=== PATIENT | female | born 2000 | race African-American/Black ===

== ENCOUNTER 2020-12-26 10:13 | Emergency (ER) | payer OTHER, SELFPAY ==
[2020-12-26 11:05] VITALS: BP 129/81; PULSE 95; RESP 18; TEMP 36.4; O2SAT 100; BMI 28.3
--- NOTE | 2020-12-26 11:28 | ED_ITS ---
HPI - Headache General Chief Complaint: Headache Stated Complaint: facial pain on right side of face x3 days Time Seen by Provider: 12/26/20 11:18 Source: patient Mode of arrival: Family Vehicle Limitations: no limitations History of Present Illness HPI Narrative: Patient is a 20-year-old female. Has a diagnosis of trigeminal neuralgia. She does see a neurologist for this. Is on multiple medications for. Approximately 3 days ago she started having increasing pain on the right side of her face and also pain in her right ear. No fever. She has been taking her medications as directed. They were not helping so she came to the emergency department for further evaluation Related Data Previous Rx's Medication Instructions Recorded hydrocodone 5 mg-acetaminophen 325 1 tab PO Q4-6H PRN #10 tab 12/26/20 mg tablet Allergies Allergy/AdvReac Type Severity Reaction Status Date / Time No Known Drug Allergies Allergy Verified 12/26/20 11:10 Review of Systems Constitutional Comments: No fevers, no headache, does have right-sided facial Eyes Comments: No vision changes ENT Comments: Pain in the right ear, pain on the right side of the face, no problems swallowing. Respiratory Comments: No respiratory changes Integumentary/Breasts Comments: No skin rashes Neurologic Comments: Tingling to the right side of the face Patient History Medical History Trigeminal neuralgia Social History Smoking Status: Never smoker Smoking Status: Never smoker alcohol intake frequency: 0-2 drinks per day Substance Use Type: does not use Exam Initial Vital Signs Initial Vital Signs: Vital Signs Temperature 97.6 F 12/26/20 11:05 Pulse Rate 95 H 12/26/20 11:05 Respiratory Rate 18 12/26/20 11:05 Blood Pressure 129/81 12/26/20 11:05 Pulse Oximetry 100 12/26/20 11:05 Const General: cooperative and healthy appearing [facility] Head: normal to inspection Ears: right TM abnormal (Tube in place right tympanic membrane), TM normal on the left and EAC's normal Face and sinus: normal facial exam and tenderness on the right Eyes General: appearance normal, both eyes and all related structures Neck Neck: normal visual inspection Resp Effort & Inspection: normal respiratory effort Skin General: no rashes or lesions noted Neuro General: patient alert, patient awake and moves all extremities Extrem General: normal to inspection and capillary refill normal Psych Appearance: grossly normal and well kempt Course Orders Ordered: Discontinued Medications Hydromorphone HCl (Hydromorphone 1 Mg Inj) 1 mg IM NOW ONE Stop: 12/26/20 11:30 Vital Signs Vital signs: Vital Signs - 8 hr 12/26/20 11:05 Temperature 97.6 F Pulse Rate 95 H Respiratory Rate 18 Blood Pressure 129/81 Pulse Oximetry 100 MDM - Headache MDM Narrative Medical decision making narrative: Patient has a diagnosis of trigeminal ne uralgia. Is under the care of Neurology. Is on medications for prevention/treatment to include gabapentin and Tegretol and others. Her discomfort today has been going on for 3 days. Will treat with pain medication. We have her contact her neurologist for a follow-up. She was given return precautions and follow-up instructions. She expressed understanding and agreement. Discharge Plan Departure Patient Disposition: Home Clinical Impression: Right trigeminal neuralgia Instructions: Trigeminal Neuralgia Activity Restrictions/Additional Instructions: I recommend that you continue to take all of your medications as directed. You do need to contact your neurologist for further evaluation and treatment especially if your symptoms do not improve over the next day or so. The medications that you were prescribed today were electronically transmitted to the [facility] pharmacy. They will show up on a urinalysis so be sure to let your command know that you were prescribed these medicines. Return to the emergency department for any new symptoms Prescriptions: New hydrocodone-acetaminophen 5-325 mg tablet 1 tab PO Q4-6H PRN (Reason: pain) Qty: 10 RF: 0
[2020-12-26 11:50] VITALS: BP 124/73; PULSE 93; O2SAT 100
[2020-12-26] MEDS: HYDROMORPHONE 1 MG INJ IM (11:55)
== END 2020-12-26 12:01 | disposition home or self-care (01) ==
PROVIDERS: Emergency Provider Emergency Medicine
DX: G50.0 Trigeminal neuralgia (principal)
CPT/HCPCS: 96372; 99283; J1170

== ENCOUNTER 2021-05-29 08:31 | Emergency (ER) | payer OTHER, SELFPAY ==
[2021-05-29 09:13] VITALS: BP 123/83; PULSE 85; RESP 18; TEMP 36.6; O2SAT 99; BMI 26.3
--- NOTE | 2021-05-29 09:39 | ED_ITS ---
HPI - Headache General Chief Complaint: Headache Stated Complaint: pain, rash on neck Time Seen by Provider: 05/29/21 09:37 Mode of arrival: Family Vehicle History of Present Illness HPI Narrative: Patient is a 20-year-old female was diagnosed with trigeminal neuralgia. She typically takes amitriptyline carbamazepine gabapentin however the last 2 days it has not been working. She is tearful she cannot turn her head to the left. She was here previously in December for the same and she got 1 dose of Dilaudid. She denies any fever or chills. This feels like her trigeminal of pain. The patient also says she woke up with some itching on her left side and right arm. She has some mild redness. No fever or chills Related Data Home Medications Medication Instructions Recorded Confirmed amitriptyline 25 mg tablet mg 05/29/21 carbamazepine 400 mg mg PO 05/29/21 tablet,extended release,12 hr gabapentin 300 mg capsule mg 05/29/21 hydrocodone 5 mg-acetaminophen 325 tab 05/29/21 mg tablet Previous Rx's Medication Instructions Recorded hydrocodone 5 mg-acetaminophen 325 1 tab PO Q4-6H PRN #10 tab 12/26/20 mg tablet hydrocodone 5 mg-acetaminophen 325 1 tab PO Q6H PRN #10 tab 05/29/21 mg tablet Allergies Allergy/AdvReac Type Severity Reaction Status Date / Time No Known Drug Allergies Allergy Verified 05/29/21 09:18 Review of Systems Review of Systems Narrative: GENERAL: Denies chills, fatigue, malaise, fever, sweats, travel HEENT: Denies sinus pain, ear pain, sore throat, difficulty swallowing, neck pain RESPIRATORY: Denies dyspnea, cough, wheezing, hemoptysis, sputum. CARDIOVASCULAR: Denies chest pain, palpitations, orthopnea, edema GASTROINTESTINAL: Denies nausea, vomiting, abdominal pain, diarrhea, constipation, melena. : Denies dysuria, frequency, incontinence, hematuria, urinary retention, flank pain. MUSCULOSKELETAL: Denies weakness, joint pain, or bony pain SKIN: No rash, no erythema, no pruritus NEUROLOGIC: See HPI PSYCHIATRIC: No concerning psychosocial issues. 12 point review of systems is negative except for those stated above and HPI Patient History Medical History Trigeminal neuralgia Social History Smoking Status: Never smoker Smoking Status: Never smoker alcohol intake frequency: 0-2 drinks per day Substance Use Type: does not use Exam Initial Vital Signs Initial Vital Signs: Vital Signs Temperature 97.9 F 05/29/21 09:13 Pulse Rate 85 05/29/21 09:13 Respiratory Rate 18 05/29/21 09:13 Blood Pressure 123/83 05/29/21 09:13 Pulse Oximetry 99 05/29/21 09:13 GENERAL: Tearful 20-year-old female NECK: Decreased range of motion to the right. CARDIOVASCULAR: peripheral pulses in tact, cap refill <2 sec RESPIRATORY: No respiratory distress, speaks in full sentences without difficulty [ABDOMEN: Soft, nontender, no guarding or rebound] EXTREMITIES: Normal range of motion, no clubbing or edema. Neurovascularly intact NEUROLOGICAL: Cranial nerves II through XII grossly intact. Normal gait and speech. SKIN: No petechiae very minimal hives noted on the all left chest and right arm Course Orders Ordered: Discontinued Medications Ketorolac Tromethamine (Ketorolac 30 Mg/Ml Vial) 30 mg IM NOW ONE Stop: 05/29/21 09:40 Last Admin: 05/29/21 10:02 Dose: 30 mg Documented by: NATASHA Vital Signs Vital signs: Vital Signs - 8 hr 05/29/21 09:13 05/29/21 10:47 Temperature 97.9 F Pulse Rate 85 70 Respiratory Rate 18 16 Blood Pressure 123/83 122/70 Pulse Oximetry 99 99 MDM - Headache MDM Narrative Medical decision making narrative: Patient has a history of trigeminal neuralgia this pain is similar. Pain has improved after Toradol. Rash appears to be very very mild I have like. Recommend that she take Benadryl. She has previously received prescriptions for hydrocodone for severe pain which I think is reasonable. Also encouraged her to take ibuprofen. At this time she is afebrile I do not suspect meningitis or other infectious process, since she does not have a fever. Discharge Plan Departure Patient Disposition: Home Clinical Impression: Right trigeminal neuralgia, Hives Instructions: Trigeminal Neuralgia Activity Restrictions/Additional Instructions: *You have been diagnosed with trigeminal neuralgia pain *What to do: At this time hopefully her pain improves a little bit. Recommend resting heating pad and light stretches as well. A rash appears to be hives possible allergic. Monitor it to see if it gets any worse. *Continue to take medications as directed Hydrocodone 1 tablet every 6 hours if needed for severe pain--> SENT TO [facility] Ibuprofen 800 mg every 8 hours as needed for [id number] pain Benadryl 25 mg if needed for itching--this does cause drowsiness do not drive *Follow up with your primary care provider in 2-3 days or call [phone] *Return to ER if you should have worsening rash, increasing pain numbness tingling weakness or any new, worsening or concerning symptoms CONTROLLED SUBSTANCE DISCHARGE (Narcotoic/benzodiazepine/Flexeril/Phenergan) 1. You have been prescribed narcotic medications, it does have acetaminophen/Tylenol/paracetamol in it, DO NOT TAKE MORE THAN 4,00mg in 24 hour s of Tylenol. TRAMADOL DOES NOT CONTAIN TYLENOL 2. Please understand that we cannot provide further refills of narcotics, benzodiazepines or controlled substances through the ED and her pain management will need to be through your provider. 3. While on these medications you cannot drive or operate heavy machinery. 4. You cannot sign legal documents or perform any duties such as this. 5. As long as you're taking opiate pain medications he should also be taking a stool softener such as Colace, Dulcolax, MiraLAX or prune juice, to help avoid constipation. Prescriptions: New hydrocodone-acetaminophen 5-325 mg tablet 1 tab PO Q6H PRN (Reason: pain) Qty: 10 0RF No Action hydrocodone-acetaminophen 5-325 mg tablet 1 tab PO Q4-6H PRN (Reason: pain) Qty: 10 0RF amitriptyline 25 mg tablet 0RF hydrocodone-acetaminophen 5-325 mg tablet 0RF Label Comments: TAKE 1 TABLET BY MOUTH EVERY 6 HOURS NEEDED FOR PAIN TAKE 1 TABLET BY MOUTH EVERY 6 HOURS NEEDED FOR PAIN carbamazepine 400 mg tablet extended release 12 hr PO 0RF gabapentin 300 mg capsule 0RF Label Comments: TAKE 3 CAPSULES BY MOUTH AT BEDTIME Stand Alone Forms: Work Release Note
[2021-05-29] MEDS: KETOROLAC 30 MG/ML VIAL IM (10:02)
[2021-05-29 10:47] VITALS: BP 122/70; PULSE 70; RESP 16; O2SAT 99
== END 2021-05-29 10:48 | disposition home or self-care (01) ==
PROVIDERS: Emergency Provider Emergency Medicine
DX: G50.0 Trigeminal neuralgia (principal); L50.9 Urticaria, unspecified
CPT/HCPCS: 96372; 99283; J1885

== ENCOUNTER 2022-02-16 07:32 | Emergency (ER) | payer OTHER, SELFPAY ==
[2022-02-16 07:51] VITALS: BP 147/78; PULSE 90; RESP 18; TEMP 36.9; O2SAT 100; BMI 26.9
[2022-02-16] MEDS: diphenhydrAMINE 25 MG TABLET 50 MG PO (08:17)
[2022-02-16] MEDS: predniSONE 20 MG TABLET 60 MG PO (08:17)
--- NOTE | 2022-02-16 09:18 | ED_ITS ---
HPI - Allergic Reaction General Chief complaint: Allergic Reaction Stated complaint: hives on body Time Seen by Provider: 02/16/22 07:58 Source: patient Mode of arrival: Ambulatory History of Present Illness HPI narrative: This is a 21-year-old female with trigeminal neuralgia on carbamazepine and history of recurrent swelling of her lips and hives on her neck chest under arms and thighs. Patient states she is been on the carbamazepine for over a year, her symptoms started in September and have been intermittent. She is actually been off her carbamazepine for the past 2 months because she had Botox so I do not suspect her carbamazepine is the source her neurologist did not think so either. Patient does not get swelling of her tongue but sometimes feels a little raw she does not have any narrowing or swelling in her throat, no speech changes, no chest pain or shortness of breath, she states the rash seems to happen in the same locations the pigmentation has been getting darker over time and is quite itchy when it occurs. She states usually last for 2 or 3 days and then improves she typically goes to medical at the [facility] give her oral steroids. Episodes typically occur 1 to 2 times a month. She states her lips will swell up as well. Patient denies any chest pain or shortness of breath, no GI or urinary symptoms. She does have family history of rheumatoid and possibly lupus and autoimmune diseases with her mother and extended family. She has seen an chair pad maker, had testing was told they did not think that it was allergic told her to use a nasal steroid and oral antihistamine which she states has not been hel pful in decreasing the episodes. She is scheduled to go follow up with Dermatology, we also discussed following up with rheumatology. Patient presents today because the medical is closed at the [facility] because it is the weekend. Related Data Home Medications Medication Instructions Recorded Confirmed amitriptyline 25 mg tablet mg 05/29/21 carbamazepine 400 mg mg PO 05/29/21 tablet,extended release,12 hr gabapentin 300 mg capsule mg 05/29/21 hydrocodone 5 mg-acetaminophen 325 tab 05/29/21 mg tablet Previous Rx's Medication Instructions Recorded hydrocodone 5 mg-acetaminophen 325 1 tab PO Q4-6H PRN pain #10 tabs 12/26/ mg tablet hydrocodone 5 mg-acetaminophen 325 1 tab PO Q6H PRN pain #10 tabs 05/29/21 mg tablet prednisone 50 mg tablet 50 mg PO DAILY #5 tabs 02/16/22 Allergies Allergy/AdvReac Type Severity Reaction Status Date / Time No Known Drug Allergies Allergy Verified 02/16/22 07:51 Patient History Medical History Trigeminal neuralgia Social History Smoking Status: Never smoker Smoking Status: Never smoker alcohol intake frequency: holidays/special occasions only Substance Use Type: does not use Exam Narrative Exam Narrative: GEN: well nourished, well appearing female, alert and oriented x 3, patient appears to be in mild distress. HEENT: Atraumatic, pupils are equal round reactive to light, extraocular movements are intact, nares are clear, TMs are clear with no fluid, there is no conjunctival pallor. Throat is clear without any exudates, erythema, tonsillar enlargement or uvular deviation, mild swelling bilateral upper and lower lips. No oropharyngeal involvement. Normal speech. No stridor muffled voice. HEART: Regular rate and rhythm without murmur, clicks, rubs. LUNGS:Lungs clear to auscultation, no wheezes, rales, crackles, chest moves symmetrically ABD:bowel sounds normal, soft, non-tender, no guarding, rebound, rigidity, no masses noted, no hepatosplenomegaly :No CVA tenderness, [male/female exam] MSCL: Non-tender, no muscle atrophy, muscles strength 5/5 upper and lower extremities, full range of motion, normal gait NEURO:CN 2-12 intact, sensation normal SKIN: Patient has slightly raised hyperpigmented lesions on the neck, anterior upper chest, axilla. No blistering, no skin changes. Initial Vital Signs Initial Vital Signs: Vital Signs Temperature 98.4 F 02/16/22 07:51 Pulse Rate 90 02/16/22 07:51 Respiratory Rate 18 02/16/22 07:51 Blood Pressure 147/78 H 02/16/22 07:51 Pulse Oximetry 100 02/16/22 07:51 Oxygen Delivery Method 02/16/22 07:51 Course Orders Ordered: Discontinued Medications Diphenhydramine HCl (Diphenhydramine 25 Mg Tablet) 50 mg PO NOW ONE Stop: 02/16/22 07:59 Last Admin: 02/16/22 08:17 Dose: 50 mg Documented By: NR Prednisone (Prednisone 20 Mg Tablet) 60 mg PO NOW ONE Stop: 02/16/22 07:59 Last Admin: 02/16/22 08:17 Dose: 60 mg Documented By: NR Vital Signs Vital signs: Vital Signs - 8 hr 02/16/22 07:51 Temperature 98.4 F Pulse Rate 90 Respiratory Rate 18 Blood Pressure 147/78 H Pulse Oximetry 100 Oxygen Delivery Method Room Air MDM - Allergic Reaction MDM Narrative Medical decision making narrative: [age] year old female with history of intermittent sounds like angioedema but also with hives on her chest, no clear allergic triggers she does have a autoimmune history of her family. She was on carbamazepine but she has been off this for the past 2 months and still having episodes. Patient does wrist seemed to respond to steroids. She is not having any airway involvement she is some lip swelling but is mild and she states not progressive it started last night with the most recent episode. Discussed doing a diary to keep track of her episodes, she is already seen allergy, she has referral to Dermatology and we discussed possibly rheumatology follow-up. Short course of oral steroid and continue her daily antihistamine Discharge Plan Departure Patient Disposition: Home Clinical Impression: Angioedema Instructions: DI for Angioedema Activity Restrictions/Additional Instructions: Please with your medical team, I think it is very appropriate for you to follow with Dermatology and if this is not fruitful I would actually consider following with Rheumatology as well based on your family history. The swelling of your lips is similar to angioedema, the skin changes do appear to be almost an allergic like reaction but there are other potential causes. Please take steroids until completely gone. [facility] [place]. You may continue Benadryl 1-2 tablets every 6 hours as needed. Please return for rapidly worsening swelling of her lips face, tongue airway, if you are having difficulty with speech, swallowing your saliva or secretions, if you are having persistent vomiting, chest tightness or wheezing, chest pain, passing out or other new or concerning changes. Prescriptions: New prednisone 50 mg tablet 50 mg PO DAILY Qty: 5 0RF No Action hydrocodone-acetaminophen 5-325 mg tablet 1 tab PO Q4-6H PRN (Reason: pain) Qty: 10 0RF amitriptyline 25 mg tablet hydrocodone-acetaminophen 5-325 mg tablet Label Comments: TAKE 1 TABLET BY MOUTH EVERY 6 HOURS NEEDED FOR PAIN TAKE 1 TABLET BY MOUTH EVERY 6 HOURS NEEDED FOR PAIN carbamazepine 400 mg tablet extended release 12 hr PO gabapentin 300 mg capsule Label Comments: TAKE 3 CAPSULES BY MOUTH AT BEDTIME hydrocodone-acetaminophen 5-325 mg tablet 1 tab PO Q6H PRN (Reason: pain) Qty: 10 0RF Stand Alone Forms: Work Release Note Visit Report Forms: Patient Portal/API
== END 2022-02-16 09:54 | disposition home or self-care (01) ==
PROVIDERS: Emergency Provider Emergency Medicine
DX: T78.3XXA Angioneurotic edema, initial encounter (principal)
CPT/HCPCS: 99283

== ENCOUNTER 2022-05-08 08:08 | Emergency (ER) | payer OTHER, SELFPAY ==
--- NOTE | 2022-05-08 08:11 | ED.GENADULT ---
HPI - General Adult General Chief complaint: Recheck/Abnormal Lab/Rx Stated complaint: low white blood cells sent by [facility] Time Seen by Provider: 05/08/22 08:11 History of Present Illness HPI narrative: 21-year-old female nonsmoker with history of trigeminal neuralgia and urticaria presents with her significant other and a chief complaint low white blood cell count. She states that she has been evaluated for abnormal bruising and urticaria and had blood work a few days ago at the [facility] and was called yesterday and told she had low white blood cells. She was encouraged to present to the emergency department if she developed any signs of sickness or fever. She states that for the past few days she is had runny nose, sneezing and cough but no fever. She is not dizzy nor weak or lightheaded. She denies any sore throat. She has no chest pain or shortness of breath. She denies nausea, vomiting or diarrhea. She has no dysuria, frequency or urgency. She denies any new medications or dietary change. She is had no chills or body aches Related Data Home Medications Medication Instructions Recorded Confirmed amitriptyline 25 mg tablet mg 05/29/21 carbamazepine 400 mg mg PO 05/29/21 tablet,extended release,12 hr gabapentin 300 mg capsule mg 05/29/21 hydrocodone 5 mg-acetaminophen 325 tab 05/29/21 mg tablet Previous Rx's Medication Instructions Recorded hydrocodone 5 mg-acetaminophen 325 1 tab PO Q4-6H PRN pain #10 tabs 12/26/ mg tablet hydrocodone 5 mg-acetaminophen 325 1 tab PO Q6H PRN pain #10 tabs 05/29/21 mg tablet prednisone 50 mg tablet 50 mg PO DAILY #5 tabs 02/16/22 Allergies Allergy/AdvReac Type Severity Reaction Status Date / Time No Known Drug Allergies Allergy Verified 02/16/22 07:51 Review of Systems Review of Systems Narrative: GENERAL: See HPI HEENT: See HPI RESPIRATORY: See HPI CARDIOVASCULAR: Denies chest pain, palpitations, orthopnea, edema, GASTROINTESTINAL: Denies nausea, vomiting, abdominal pain, diarrhea, constipation, melena. : Denies dysuria, frequency, incontinence, hematuria, urinary retention. MUSCULOSKELETAL: denies weakness, joint pain, or bony pain SKIN: Denies rash, skin lesions, or other NEUROLOGIC: Denies weakness, headache, numbness, change in speech, confusion, seizures, incoordination. PSYCHIATRIC: No concerning psychosocial issues. 12 point review of systems is negative except for those stated above Patient History Medical History Trigeminal neuralgia Social History Smoking Status: Never smoker Smoking Status: Never smoker alcohol intake frequency: holidays/special occasions only Substance Use Type: does not use Exam Narrative Exam Narrative: GENERAL: [21] year old patient appears stated age. Well-developed patient, in mild distress. HEAD: Atraumatic. Normocephalic. EYES: Pupils equal round and reactive. Extraocular motions intact. No scleral icterus. No injection or drainage. ENT: Nose without bleeding, purulent drainage. Throat without erythema, tonsillar hypertrophy or exudate. Airway patent. NECK: Trachea midline. Non tender CARDIOVASCULAR: Regular rate and rhythm without murmurs, gallops, or rubs. RESPIRATORY: Clear to auscultation. Breath sounds equal bilaterally. No wheezes, rales, or rhonchi. GASTROINTESTINAL: Abdomen soft, non-tender, nondistended. EXTREMITIES: No edema or joint tenderness. BACK: Nontender without deformity or crepitance. No flank tenderness. NEURO: AOx3. SKIN: multiple quarter sized areas of hyperpigmentation (rather than obvious bruising) on anterior neck and forearms, no Initial Vital Signs Initial Vital Signs: Vital Signs Pulse Oximetry 99 05/08/22 08:16 Course Orders Ordered: ED Orders 05/08/22 08:19 XR chest 2V Stat Complete Blood Count AUTO DIFF Stat Comprehensive Metabolic Panel Stat Covid-19 + FLU A/B + RSV - PCR Stat Lactate (Lactic Acid) Stat Vital Signs Vital signs: Vital Signs - 8 hr 05/08/22 08:19 05/08/22 08:16 05/08/22 08:17 Temperature 97.7 F Pulse Rate 88 90 Respiratory Rate 16 Blood Pressure 156/84 H Pulse Oximetry 98 99 100 Oxygen Delivery Method Room Air 05/08/22 08:17 Temperature Pulse Rate Respiratory Rate Blood Pressure 156/84 H Pulse Oximetry Oxygen Delivery Method Medical Decision Making Lab Data 05/08/22 08:48 05/08/22 08:48 Labs: Lab Results 05/08/22 05/08/22 05/08/22 Range/Units 08:48 08:48 08:48 WBC 2.6 L (4.5-11.0) X10^3/uL RBC 4.63 (4.0-5.2) X10^6/uL Hgb 12.2 (12.0-16.0) g/dL Hct 38.0 (36-46) % MCV 82.0 (80-100) fL MCH 26.3 (26-34) PG MCHC 32.0 (30-36) % RDW 12.6 (11.6-14.8) % Plt Count 186 (150-400) X10^3/uL Neut % (Auto) 45.9 L (50-75) % Lymph % (Auto) 42.5 H (25-40) % [place] % (Auto) 8.9 (3-14) % Eos % (Auto) 2.0 (2-4) % Baso % (Auto) 0.7 (0-2) % Neut # (Auto) 1200 L (9609-0966) /uL Lymph # (Auto) 1100 (6867-4496) /uL [place] # (Auto) 200 (0-900) /uL Eos # (Auto) 100 (0-450) /uL Baso # (Auto) 0 (0-100) /uL Sodium 140 (137-145) mmol/L Potassium 4.2 (3.4-5.1) mmol/L Chloride 107 (98-107) mmol/L Carbon Dioxide 25 (22-32) mmol/L BUN 12 (7-17) mg/dL Creatinine 0.64 (0.52-1.04) mg/dL Estimated GFR > 60 (>60) mL/min BUN/Creatinine Ratio 18.8 (6-22) Glucose 133 H (70-100) mg/dL Lactate 1.2 (0.7-2.1) mmol/L Calcium 8.7 (8.4-10.2) mg/dL Total Bilirubin 0.2 (0.2-1.3) mg/dL AST 24 (14-36) IU/L ALT 18 (<35) IU/L Alkaline Phosphatase 69 (38-126) U/L Total Protein 7.8 (6.3-8.2) g/dL Albumin 4.2 (3.5-5.0) g/dL Globulin 3.6 (1.7-4.1) g/dL Albumin/Globulin Ratio 1.2 (1.0-2.8) Point of Care Testing Test Results Negative Urine Dip Bedside Urine Glucose Negative Bedside Urine Bilirubin - Negative Bedside Urine Ketone - Negative Urine Specific [place] 1.020 Bedside Urine Occult Blood - Negative Bedside Urine pH 6.0 Bedside Urine Protein - Negative Bedside Urine Urobilinogen - Negative Bedside Urine Nitrite - Negative Bedside Urine Leukocytes - Negative Esterase Point of care testing: Point of Care Testing Test Results Negative Urine Dip Bedside Urine Glucose Negative Bedside Urine Bilirubin - Negative Bedside Urine Ketone - Negative Urine Specific [place] 1.020 Bedside Urine Occult Blood - Negative Bedside Urine pH 6.0 Bedside Urine Protein - Negative Bedside Urine Urobilinogen - Negative Bedside Urine Nitrite - Negative Bedside Urine Leukocytes - Negative Esterase Imaging Data Chest x-ray: Radiologist's Impression: Close Chest X-Ray (Signed) Ag Bajwa - 05/08/22 Launch?[place] [address] XRay Report Signed Patient: Roxanne Barbour MR#: [id number] : 2000 Acct:[id number] Age/Sex: 21 / F Date of Service: 05/08/22 Loc: Accession Number: [id number] ?? Procedure: XR chest 2V Ordering Provider: Jose Calvillo D.O. PROCEDURE:? XR CHEST 2V ? INDICATIONS:? cough, low WBC, sent by [facility] ? TECHNIQUE:? 2 views of the chest were acquired.? ? COMPARISON:? None. ? FINDINGS:? ? Surgical changes and devices:? None.? ? Lungs and pleura:? Lungs are clear.? No pleural effusions or pneumothorax.? ? Mediastinum:? Mediastinal contours are normal.? Heart size is normal.? ? Bones and chest wall:? No suspicious bony abnormalities.? Soft tissues appear unremarkable.? ? IMPRESSION:? No evidence acute pulmonary process. ? ? ? Dictated by: Ag Bajwa M.D. on 05/08/2022 at 8:49 ? ? Approved by: Ag Bajwa M.D. on 05/08/2022 at 8: MDM Narrative Medical decision making narrative: CC: 21-year-old female with chronic urticaria and hyperpigmentation had labs noting low white blood cells Complicating co-morbidities: Chronic immune ?issues? Data collected from: Patient Medical records reviewed: Prior notes reviewed in our EMR Differential considered, but not limited to: Neutropenia, sepsis, flu, COVID versus other Exam documented above, pertinent findings include: AOx3, HRRR, lungs clear, breathing non labored Lab Test results independently reviewed as above. Pertinent findings: mild neutropenia (ANC 1200) Imaging studies independently reviewed: CXR Clear Discussion: 21-year-old female received a phone call about low white blood cells and was told to present to the emergency department if she developed any signs of feeling sick. She has had some upper respiratory complaints but no fever. She has no chest pain or shortness of breath, abdomen is soft. She does have a mild neutropenia with absolute neutrophil count of 1200 but no signs of infection nothing to indicate antibiotics are warranted. Disposition: see below, along with detailed discharge instructions that have been reviewed with patient as well as indications for ED re-evaluation and additional outpatient follow up Discharge Plan Departure Patient Disposition: Home Clinical Impression: Neutropenia Instructions: DI for Neutropenia Activity Restrictions/Additional Instructions: *You have been diagnosed with [low white blood cell count, no indication for specific intervention at this time] *What to do: *Please continue to take your regular medications as directed. [ ] New medication prescriptions sent to your pharmacy: [ ] [ ] New medication written as a paper prescription [ ] No new medications given *Please follow up with your primary care provider in 2-3 days, call for an appointment. Let them know you were seen in the Emergency Department and that we ask that you be seen in follow up. We will electronically transmit a record of today's note if your PCP is in our system *If you do not have a primary care provider please contact the [facility] Resource line at [phone]. They will ask some questions about your medical history and help get you set up with a doctor in the community. *Return to Emergency Department if you should have any new, worsening or concerning symptoms, such as [fever greater than 101 F, shaking chills, worsening pain, persistent vomiting or other bothersome symptoms] Prescriptions: No Action hydrocodone-acetaminophen 5-325 mg tablet 1 tab PO Q4-6H PRN (Reason: pain) Qty: 10 0RF prednisone 50 mg tablet 50 mg PO DAILY Qty: 5 0RF amitriptyline 25 mg tablet hydrocodone-acetaminophen 5-325 mg tablet Label Comments: TAKE 1 TABLET BY MOUTH EVERY 6 HOURS NEEDED FOR PAIN TAKE 1 TABLET BY MOUTH EVERY 6 HOURS NEEDED FOR PAIN carbamazepine 400 mg tablet extended release 12 hr PO gabapentin 300 mg capsule Label Comments: TAKE 3 CAPSULES BY MOUTH AT BEDTIME hydrocodone-acetaminophen 5-325 mg tablet 1 tab PO Q6H PRN (Reason: pain) Qty: 10 0RF Referrals: ProviderDarrius [Primary Care Provider] - Stand Alone Forms: Patient Portal/API
[2022-05-08 08:16] VITALS: O2SAT 99
[2022-05-08 08:17] VITALS: BP 156/84; PULSE 90; O2SAT 100
[2022-05-08 08:19] VITALS: BP 156/84; PULSE 88; RESP 16; TEMP 36.5; O2SAT 98; BMI 24.9
--- NOTE | 2022-05-08 08:19 | DI.RAD.S_ITS ---
PROCEDURE: XR CHEST 2V INDICATIONS: cough, low WBC, sent by [facility] TECHNIQUE: 2 views of the chest were acquired. COMPARISON: None. FINDINGS: Surgical changes and devices: None. Lungs and pleura: Lungs are clear. No pleural effusions or pneumothorax. Mediastinum: Mediastinal contours are normal. Heart size is normal. Bones and chest wall: No suspicious bony abnormalities. Soft tissues appear unremarkable. IMPRESSION: No evidence acute pulmonary process. Dictated by: Ag Bajwa M.D. on 05/08/2022 at 8:49 Approved by: Ag Bajwa M.D. on 05/08/2022 at 8:50
[2022-05-08 09:00] LABS: Add Manual Diff / Slide Review NO; Basophils Absolute Auto 0 /uL (0-100); Basophils Percent Auto 0.7 % (0-2); Eosinophils Absolute Auto 100 /uL (0-450); Hemoglobin 12.2 g/dL (12.0-16.0); Lymphocytes Absolute Auto 1100 /uL (1100-4500); Lymphocytes Percent Auto 42.5 % (25-40); Mean Corpuscular Hemoglobin 26.3 PG (26-34); Monocytes Absolute Auto 200 /uL (0-900); Monocytes Percent Auto 8.9 % (3-14); Neutrophils Absolute Auto 1200 /uL (1500-7000); Neutrophils Percent Auto 45.9 % (50-75); Platelet Count 186 X10^3/uL (150-400); Red Blood Cell Count 4.63 X10^6/uL (4.0-5.2); Red Cell Distribution Width 12.6 % (11.6-14.8); White Blood Cell Count 2.6 X10^3/uL (4.5-11.0)
[2022-05-08 09:13] LABS: Alanine Aminotransferase 18 IU/L (<35); Albumin 4.2 g/dL (3.5-5.0); Albumin Globulin Ratio 1.2 (1.0-2.8); Alkaline Phosphatase 69 U/L (38-126); Aspartate Aminotransferase 24 IU/L (14-36); BUN Creatinine Ratio 18.8 (6-22); Bilirubin Total 0.2 mg/dL (0.2-1.3); Blood Urea Nitrogen 12 mg/dL (7-17); Calcium 8.7 mg/dL (8.4-10.2); Carbon Dioxide 25 mmol/L (22-32); Chloride 107 mmol/L (98-107); Estimated Glomerular Filt Rate > 60 mL/min (>60); Globulin 3.6 g/dL (1.7-4.1); Glucose 133 mg/dL (70-100); HEMOLYSIS < 15 (0-50); Lactate (Lactic Acid) 1.2 mmol/L (0.7-2.1); Potassium 4.2 mmol/L (3.4-5.1); Sodium 140 mmol/L (137-145); Total Protein 7.8 g/dL (6.3-8.2)
[2022-05-08 09:28] VITALS: BP 121/72; RESP 81; O2SAT 100
[2022-05-08 09:39] LABS: Influenza A - CEPHEID Flu A NEGATIVE (NEGATIVE); Influenza B - CEPHEID Flu B NEGATIVE (NEGATIVE); Respiratory Syncytial Virus Negative (Negative)
[2022-05-08 09:48] LABS: COVID-19 CEPHEID 4-PLEX PCR Negative (Negative)
== END 2022-05-08 09:29 | disposition home or self-care (01) ==
PROVIDERS: Emergency Provider Emergency Medicine
DX: D70.9 Neutropenia, unspecified (principal); R05.9 Cough, unspecified; Z20.822 Contact with and (suspected) exposure to COVID-19
CPT/HCPCS: 0241U; 36415; 71046; 80053; 81003; 81025; 83605; 85025; 99284

== ENCOUNTER 2022-12-01 18:43 | Emergency (ER) | payer OTHER, SELFPAY ==
[2022-12-01] VITALS (12 sets, daily range): BP systolic 108–130; BP diastolic 58–75; PULSE 77–96; RESP 16–18; TEMP 36.6; O2SAT 99–100; BMI 26.0
[2022-12-01] MEDS: ONDANSETRON 4 MG/2 ML INJ IV (19:30)
[2022-12-01] MEDS: SODIUM CHLORIDE 0.9% 1,000 ML 1000 ML IV ×2 (19:30→20:18)
[2022-12-01 19:54] LABS: Add Manual Diff / Slide Review NO; Basophils Absolute Auto 0 /uL (0-100); Basophils Percent Auto 0.3 % (0-2); Eosinophils Absolute Auto 0 /uL (0-450); Eosinophils Percent Auto 1.4 % (2-4); Hematocrit 36.3 % (36-46); Hemoglobin 12.2 g/dL (12.0-16.0); Lymphocytes Absolute Auto 1100 /uL (1100-4500); Lymphocytes Percent Auto 31.5 % (25-40); Mean Corpuscular HGB Conc 33.6 % (30-36); Mean Corpuscular Hemoglobin 26.9 PG (26-34); Mean Corpuscular Volume 80.2 fL (80-100); Monocytes Absolute Auto 400 /uL (0-900); Monocytes Percent Auto 9.9 % (3-14); Neutrophils Absolute Auto 2000 /uL (1500-7000); Neutrophils Percent Auto 56.9 % (50-75); Platelet Count 210 X10^3/uL (150-400); Red Blood Cell Count 4.52 X10^6/uL (4.0-5.2); Red Cell Distribution Width 13.4 % (11.6-14.8); White Blood Cell Count 3.6 X10^3/uL (4.5-11.0)
[2022-12-01 20:00] LABS: Alanine Aminotransferase 17 IU/L (<35); Albumin Globulin Ratio 1.1 (1.0-2.8); Alkaline Phosphatase 56 U/L (38-126); Aspartate Aminotransferase 25 IU/L (14-36); BUN Creatinine Ratio 14.8 (6-22); Bilirubin Total 0.4 mg/dL (0.2-1.3); Blood Urea Nitrogen 8 mg/dL (7-17); Calcium 9.1 mg/dL (8.4-10.2); Carbon Dioxide 20 mmol/L (22-32); Chloride 102 mmol/L (98-107); Estimated Glomerular Filt Rate > 60 mL/min (>60); Globulin 3.7 g/dL (1.7-4.1); Glucose 112 mg/dL (70-100); HEMOLYSIS 17 (0-50); Lipase 80 U/L (23-300); Potassium 3.6 mmol/L (3.4-5.1); Sodium 132 mmol/L (137-145); Total Protein 7.7 g/dL (6.3-8.2)
[2022-12-01 20:14] LABS: Ictotest Urine Negative (Negative)
[2022-12-01 20:32] LABS: Bacteria Urine Moderate (10-30); Culture Indicated Urine Specimen Cultured; Mucus Urine 2+ (Negative); RBC Urine None Seen (0-5/HPF); Squamous Epithelial Cell Urine 1-5 /HPF (0-5/HPF); WBC Urine 1-5/HPF (0-5/HPF)
[2022-12-02] VITALS: PULSE 86; RESP 18; O2SAT 100
[2022-12-02 00:30] VITALS: BP 105/58; PULSE 85; O2SAT 99
[2022-12-02 01:00] VITALS: BP 102/56; PULSE 79; RESP 16; O2SAT 100
[2022-12-02 01:30] VITALS: BP 102/67; PULSE 80; O2SAT 100
--- NOTE | 2022-12-02 01:30 | ED.NAVMDI ---
HPI - Nausea/Vomiting/Diarrhea General Chief complaint: Nausea/Vomiting/Diarrhea Stated complaint: 13 WKS /LIGHTHEADED/DEHYDRATED Time Seen by Provider: 12/01/22 19:24 Source: patient Mode of arrival: Ambulatory History of Present Illness HPI Narrative: 21-year-old at 13 weeks gestational age with nausea and vomiting throughout the the last 48 hours has been a bit worse. She is having trouble keeping anything down. She does have ondansetron that she is used at home and has a refill available. There has been no fevers chills diarrhea abdominal pain vaginal discharge or vaginal bleeding. Related Data Home Medications Medication Instructions Recorded Confirmed carbamazepine 400 mg 400 mg PO BID 05/29/21 07/01/22 tablet,extended release,12 hr gabapentin 300 mg capsule 300 mg TID 05/29/21 07/01/22 cetirizine 10 mg tablet 10 mg PO BID 07/01/22 07/01/22 nortriptyline 25 mg capsule 25 mg PO BEDTIME 07/01/22 07/01/22 rimegepant 75 mg disintegrating 75 mg PRN PRN Headache 07/01/22 07/01/22 tablet (Nurtec ODT) Allergies Allergy/AdvReac Type Severity Reaction Status Date / Time No Known Drug Allergies Allergy Verified 02/16/22 07:51 Review of Systems Review of Systems Narrative: Pertinent positive and negative findings as per HPI Patient History Medical History Trigeminal neuralgia Social History Smoking Status: Never smoker Smoking Status: Never smoker alcohol intake frequency: holidays/special occasions only Substance Use Type: does not use Exam Initial Vital Signs Initial Vital Signs: Vital Signs Temperature 97.8 F 12/01/22 18:53 Pulse Rate 89 12/01/22 18:53 Respiratory Rate 16 12/01/22 18:53 Blood Pressure 123/75 12/01/22 18:53 Pulse Oximetry 100 12/01/22 18:53 Oxygen Delivery Method Room Air 12/01/22 18:53 General: Alert appropriate in no acute distress Respiratory: Able to speak in full sentences, no obvious respiratory distress Skin: No obvious rashes, warm and dry, good capillary refill Abdomen: Gravid. heart tones 130-140 Neurologic: Grossly intact no obvious asymmetries or abnormalities Psych: appropriate insight and affect, cooperative Course Orders Ordered: ED Orders 12/01/22 19:25 Complete Blood Count AUTO DIFF Stat Comprehensive Metabolic Panel Stat Ictotest Urine Stat Lipase Stat Urine Culture Stat Urine Culture Stat Urine Microscopic Stat Ondansetron HCl (Ondansetron 4 Mg Odt) 4 mg PO NOW PRN PRN Reason: Nausea And Vomiting Ondansetron HCl (Ondansetron 4 Mg/2 Ml Inj) 4 mg IV NOW PRN PRN Reason: Nausea And Vomiting Last Admin: 12/01/22 19:30 Dose: 4 mg Documented By: RHIANNON Discontinued Medications Sodium Chloride (Normal Saline 0.9%) 1,000 mls @ 1,000 mls/hr IV BOLUS ONE Stop: 12/01/22 20:03 Last Infusion: 12/01/22 20:18 Dose: 0 mls/hr Documented By: Admin: 12/01/22 19:30 Dose: 1,000 mls/hr Documented By: RHIANNON Sodium Chloride (Normal Saline 0.9%) 1,000 mls @ 1,000 mls/hr IV BOLUS ONE Stop: 12/01/22 20:28 Last Infusion: 12/01/22 21:11 Dose: 0 mls/hr Documented By: Admin: 12/01/22 20:18 Dose: 1,000 mls/hr Documented By: RHIANNON Vital Signs Vital signs: Vital Signs - 8 hr 12/01/22 18:53 12/01/22 19:40 12/01/22 19:41 Temperature 97.8 F Pulse Rate 89 Respiratory Rate 16 Blood Pressure 123/75 119/66 Pulse Oximetry 100 100 Oxygen Delivery Method Room Air 12/01/22 19:41 12/01/22 20:00 12/01/22 20:00 Temperature Pulse Rate 77 87 Respiratory Rate 16 16 Blood Pressure 130/59 L Pulse Oximetry 100 100 Oxygen Delivery Method 12/01/22 20:30 12/01/22 20:30 12/01/22 21:00 Temperature Pulse Rate 89 Respiratory Rate Blood Pressure 116/66 125/66 Pulse Oximetry 100 Oxygen Delivery Method 12/01/22 21:00 12/01/22 21:32 12/01/22 22:00 Temperature Pulse Rate 92 H 96 H 95 H Respiratory Rate Blood Pressure Pulse Oximetry 100 100 100 Oxygen Delivery Method 12/01/22 22:07 12/01/22 22:07 12/01/22 22:30 Temperature Pulse Rate 93 H Respiratory Rate 18 Blood Pressure 118/65 110/58 L Pulse Oximetry 100 Oxygen Delivery Method 12/01/22 22:30 12/01/22 23:00 12/01/22 23:00 Temperature Pulse Rate 89 93 H Respiratory Rate 18 Blood Pressure 116/59 L Pulse Oximetry 100 100 Oxygen Delivery Method 12/01/22 23:30 12/01/22 23:30 12/02/22 00:00 Temperature Pulse Rate 90 86 Respiratory Rate 18 Blood Pressure 108/62 Pulse Oximetry 99 100 Oxygen Delivery Method MDM - Nausea/Vomiting/Diarrhea Lab Data 12/01/22 19:25 12/01/22 19:25 Labs: Lab Results 12/01/22 12/01/22 12/01/22 Range/Units 19:25 19:25 19:25 WBC 3.6 L (4.5-11.0) X10^3/uL RBC 4.52 (4.0-5.2) X10^6/uL Hgb 12.2 (12.0-16.0) g/dL Hct 36.3 (36-46) % MCV 80.2 (80-100) fL MCH 26.9 (26-34) PG MCHC 33.6 (30-36) % RDW 13.4 (11.6-14.8) % Plt Count 210 (150-400) X10^3/uL Neut % (Auto) 56.9 (50-75) % Lymph % (Auto) 31.5 (25-40) % [place] % (Auto) 9.9 (3-14) % Eos % (Auto) 1.4 L (2-4) % Baso % (Auto) 0.3 (0-2) % Neut # (Auto) 2000 (0088-5687) /uL Lymph # (Auto) 1100 (7827-3958) /uL [place] # (Auto) 400 (0-900) /uL Eos # (Auto) 0 (0-450) /uL Baso # (Auto) 0 (0-100) /uL Sodium 132 L (137-145) mmol/L Potassium 3.6 (3.4-5.1) mmol/L Chloride 102 (98-107) mmol/L Carbon Dioxide 20 L (22-32) mmol/L BUN 8 (7-17) mg/dL Creatinine 0.54 (0.52-1.04) mg/dL Estimated GFR > 60 (>60) mL/min BUN/Creatinine Ratio 14.8 (6-22) Glucose 112 H (70-100) mg/dL Calcium 9.1 (8.4-10.2) mg/dL Total Bilirubin 0.4 (0.2-1.3) mg/dL AST 25 (14-36) IU/L ALT 17 (<35) IU/L Alkaline Phosphatase 56 (38-126) U/L Total Protein 7.7 (6.3-8.2) g/dL Albumin 4.0 (3.5-5.0) g/dL Globulin 3.7 (1.7-4.1) g/dL Albumin/Globulin Ratio 1.1 (1.0-2.8) Lipase 80 (23-300) U/L Ur Bilirubin Confirm Negative (Negative) Urine RBC (0-5/HPF) Urine WBC (0-5/HPF) Ur Squamous Epith Cells (0-5/HPF) Urine Bacteria (None) Urine Mucus (Negative) Ur Culture Indicated? 12/01/22 Range/Units 19:25 WBC (4.5-11.0) X10^3/uL RBC (4.0-5.2) X10^6/uL Hgb (12.0-16.0) g/dL Hct (36-46) % MCV (80-100) fL MCH (26-34) PG MCHC (30-36) % RDW (11.6-14.8) % Plt Count (150-400) X10^3/uL Neut % (Auto) (50-75) % Lymph % (Auto) (25-40) % [place] % (Auto) (3-14) % Eos % (Auto) (2-4) % Baso % (Auto) (0-2) % Neut # (Auto) (7196-1649) /uL Lymph # (Auto) (7061-7966) /uL [place] # (Auto) (0-900) /uL Eos # (Auto) (0-450) /uL Baso # (Auto) (0-100) /uL Sodium (137-145) mmol/L Potassium (3.4-5.1) mmol/L Chloride (98-107) mmol/L Carbon Dioxide (22-32) mmol/L BUN (7-17) mg/dL Creatinine (0.52-1.04) mg/dL Estimated GFR (>60) mL/min BUN/Creatinine Ratio (6-22) Glucose (70-100) mg/dL Calcium (8.4-10.2) mg/dL Total Bilirubin (0.2-1.3) mg/dL AST (14-36) IU/L ALT (<35) IU/L Alkaline Phosphatase (38-126) U/L Total Protein (6.3-8.2) g/dL Albumin (3.5-5.0) g/dL Globulin (1.7-4.1) g/dL Albumin/Globulin Ratio (1.0-2.8) Lipase (23-300) U/L Ur Bilirubin Confirm (Negative) Urine RBC None seen (0-5/HPF) Urine WBC 1-5/hpf (0-5/HPF) Ur Squamous Epith Cells 1-5 /hpf (0-5/HPF) Urine Bacteria Moderate (10-30) H (None) Urine Mucus 2+ H (Negative) Ur Culture Indicated? Specimen cultured Urine Dip Bedside Urine Glucose Negative Bedside Urine Bilirubin + 1 Bedside Urine Ketone ++ 40 Urine Specific [place] 1.030 Bedside Urine Occult Blood - Negative Bedside Urine pH 6.0 Bedside Urine Protein + 30 Bedside Urine Urobilinogen - Negative Bedside Urine Nitrite - Negative Bedside Urine Leukocytes - Negative Esterase MDM Narrative Medical decision making narrative: CC: associated nausea and vomiting Complicating co-morbidities: currently at 13 weeks Data collected from: patient, Differential considered: Hyperemesis gravidarum, simple nausea and vomiting , viral etiology, bacterial etiology Exam documented above, pertinent findings include: Healthy appearing young woman, not significantly dehydrated. heart tones are appreciated at 130. Lab Test results independently reviewed as above. Pertinent findings: CBC is unremarkable Metabolic panel is reassuring Treatment: 2 L of IV fluid and IV ondansetron, oral challenge and she is able to both eat and drink and feeling significantly better Discussion: 21-year-old with nausea and vomiting of . Possibility of hyperemesis gravidarum. Significantly improved after hydration at this point. She does have Zofran available at home. Talked about symptomatic management for nausea at home. Questions were answered. heart tones are appropriate, she is not having contractions vaginal bleeding or abdominal pain. Reassurance is given regarding the nausea and vomiting, questions are answered and she is safe for discharge Discharge Plan Departure Patient Disposition: Home Clinical Impression: related nausea and vomiting, antepartum Instructions: DI for Hyperemesis Gravidarum, DI for -- Discomforts and Remedies Activity Restrictions/Additional Instructions: Thank you for coming in today Congratulations on this ! The nausea you are currently experiencing is likely simply related to your . You are blood work was reassuring. There is no kidney abnormalities or electrolyte abnormalities. Your urine had some bacteria but does not look like an infection, it has been cultured and you will get a phone call if you do need any antibiotics. In the meantime, please make sure you are eating small amounts of food as frequently as you are able to. 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 Prescriptions: No Action carbamazepine 400 mg tablet extended release 12 hr 400 mg PO BID gabapentin 300 mg capsule 300 mg TID Patient Comments: TAKE 3 CAPSULES BY MOUTH AT BEDTIME cetirizine 10 mg Tablet 10 mg PO BID nortriptyline 25 mg Capsule 25 mg PO BEDTIME Nurtec ODT 75 mg Tablet,Disintegrating 75 mg PRN PRN (Reason: Headache) Referrals: ProviderDarrius [Primary Care Provider] - Stand Alone Forms: Patient Portal/API
== END 2022-12-02 01:40 | disposition home or self-care (01) ==
PROVIDERS: Emergency Provider Emergency Medicine
DX: O21.9 Vomiting of pregnancy, unspecified (principal); Z3A.13 13 weeks gestation of pregnancy
CPT/HCPCS: 36415; 80053; 81003; 81015; 83690; 85025; 87086; 96361; 96374; 99284; J2405

== ENCOUNTER 2022-12-30 18:57 | Emergency (ER) | payer OTHER, SELFPAY ==
[2022-12-30 19:04] VITALS: BP 107/51; PULSE 71; RESP 18; TEMP 36.7; O2SAT 100; BMI 27.1
--- NOTE | 2022-12-30 19:13 | ED_ITS ---
HPI - General Chief complaint: OB/Uterine Contractions Stated complaint: 17 weeks , pelvic pain Time Seen by Provider: 12/30/22 18:59 Source: patient Mode of arrival: Ambulatory Limitations: no limitations History of Present Illness HPI Narrative: 22-year-old female is a at 17 weeks presents here at request of her nurse practitioner for evaluation of ongoing lower abdominal cramping for the past few days. She was seen and evaluated by her Ob provider today down in [place] (Dr. Garcia). She reports that she had an US earlier today performed by the provider as well as a pelvic exam with swabs. She provided a urine sample with no signs of infection and was sent here for further evaluation and ?a 2nd opinion?. She denies any sharp and stabbing pain. She denies the leakage of any fluid or vaginal bleeding. She is had no fever or chills. She is not dizzy nor weak or lightheaded. Her has been unremarkable to this point Related Data Home Medications Medication Instructions Recorded Confirmed carbamazepine 400 mg 400 mg PO BID 05/29/21 07/01/22 tablet,extended release,12 hr gabapentin 300 mg capsule 300 mg TID 05/29/21 07/01/22 cetirizine 10 mg tablet 10 mg PO BID 07/01/22 07/01/22 nortriptyline 25 mg capsule 25 mg PO BEDTIME 07/01/22 07/01/22 rimegepant 75 mg disintegrating 75 mg PRN PRN Headache 07/01/22 07/01/22 tablet (Nurtec ODT) Allergies Allergy/AdvReac Type Severity Reaction Status Date / Time No Known Drug Allergies Allergy Verified 12/30/22 19:03 Review of Systems Review of Systems Narrative: GENERAL: Denies chills, fatigue, malaise, fever, sweats. HEENT: Denies sinus pain, ear pain, sore throat, difficulty swallowing, dizziness. RESPIRATORY: Denies dyspnea, cough, wheezing, hemoptysis, sputum. CARDIOVASCULAR: Denies chest pain, palpitations, orthopnea, edema, GASTROINTESTINAL: Denies nausea, vomiting, abdominal pain, diarrhea, constipation, melena. : See HPI MUSCULOSKELETAL: denies weakness, joint pain, or bony pain SKIN: Denies rash, skin lesions, or other NEUROLOGIC: Denies weakness, headache, numbness, change in speech, confusion, seizures, incoordination. PSYCHIATRIC: No concerning psychosocial issues. 12 point review of systems is negative except for those stated above Exam Narrative Exam Narrative: GENERAL: [22] year old patient appears stated age. Well-developed patient, in mild distress. HEAD: Atraumatic. Normocephalic. EYES: Pupils equal round and reactive. Extraocular motions intact. No scleral i cterus. No injection or drainage. ENT: Nose without bleeding, purulent drainage. Throat without erythema, tonsillar hypertrophy or exudate. Airway patent. NECK: Trachea midline. Non tender CARDIOVASCULAR: Regular rate and rhythm without murmurs, gallops, or rubs. RESPIRATORY: Clear to auscultation. Breath sounds equal bilaterally. No wheezes, rales, or rhonchi. GASTROINTESTINAL: Abdomen soft, non-tender, gravid below umbilicus EXTREMITIES: No edema or joint tenderness. BACK: Nontender without deformity or crepitance. No flank tenderness. NEURO: AOx3. SKIN: No rash or erythema of visible areas Initial Vital Signs Initial Vital Signs: Vital Signs Temperature 98.0 F 12/30/22 19:04 Pulse Rate 71 12/30/22 19:04 Respiratory Rate 18 12/30/22 19:04 Blood Pressure 107/51 L 12/30/22 19:04 Pulse Oximetry 100 12/30/22 19:04 Oxygen Delivery Method Room Air 12/30/22 19:04 Course Orders Ordered: ED Orders 12/30/22 20:28 OB >= 14 weeks Fetus Stat Vital Signs Vital signs: Vital Signs - 8 hr 12/30/22 19:04 12/30/22 21:02 Temperature 98.0 F 97.7 F Pulse Rate 71 68 Respiratory Rate 18 18 Blood Pressure 107/51 L 117/73 Pulse Oximetry 100 98 Oxygen Delivery Method Room Air Room Air MDM - OB/Uterine Contractions Lab Data Labs: Urine Dip Bedside Urine Glucose Negative Bedside Urine Bilirubin - Negative Bedside Urine Ketone - Negative Urine Specific [place] 1.015 Bedside Urine Occult Blood - Negative Bedside Urine pH 6 Bedside Urine Protein - Negative Bedside Urine Urobilinogen - Negative Bedside Urine Nitrite - Negative Bedside Urine Leukocytes - Negative Esterase MDM Narrative Medical decision making narrative: CC: 22-year-old female at 17 weeks with pelvic cramping sent by OB provider Complicating co-morbidities: at 17 weeks Data collected from: Patient Medical records reviewed: Prior notes reviewed, notes sent from [facility] OB Differential considered, but not limited to: Previa vs. fibroid vs. constipation vs. UTI vs. round ligament vs. other Exam documented above, pertinent findings include: No obvious distress, heart rate regular, lungs clear, abdomen soft Imaging studies independently reviewed: OB ultrasound notes Consultations: reviewed case with Dr. Hartley (certified personal chef OB). NO need for further workup tonight. Ok for DC, close follow up with her OB Discussion: 22-year-old female at 17 weeks with few days of pelvic discomfort in the absence of fever or chills, leakage of fluid or bleeding. Sent here by OB provider for a 2nd opinion. Patient has a very reassuring history and physical exam, no abnormalities up to this point. Multiple diagnoses considered as noted above. Ultrasound reassuring and no evidence of significant abnormalities. Urine is clean. Patient given reassurance, return precautions, questions answered to their apparent satisfaction Disposition: see below, along with detailed discharge instructions that have been reviewed with patient as well as indications for ED re-evaluation and additional outpatient follow up Discharge Plan Departure Patient Disposition: Home Clinical Impression: Pelvic pain during Instructions: DI for -- Discomforts and Remedies Activity Restrictions/Additional Instructions: *You have been diagnosed with [pelvic discomfort in . As we discussed your history and physical exam are reassuring. I reviewed records from [facility], discussed your case with our on-call senior electronics technician and we sure the opinion there is no significant abnormal finding today. Your ultrasound is reassuring.] *What to do: *Please continue to take your regular medications as directed. [ ] New medication prescriptions sent to your pharmacy: [ ] [ ] New medication written as a paper prescription [ ] No new medications given *Please follow up with your primary OB provider in 2-3 days, call for an appointment. Let them know you were seen in the Emergency Department and that we ask that you be seen in follow up. We will electronically transmit a record of today's note if your PCP is in our system *Return to Emergency Department if you should have any new, worsening or concerning symptoms, such as [fever greater than 101 F, shaking chills, worsening pain, persistent vomiting or other bothersome symptoms] Prescriptions: No Action carbamazepine 400 mg tablet extended release 12 hr 400 mg PO BID gabapentin 300 mg capsule 300 mg TID Patient Comments: TAKE 3 CAPSULES BY MOUTH AT BEDTIME cetirizine 10 mg Tablet 10 mg PO BID nortriptyline 25 mg Capsule 25 mg PO BEDTIME Nurtec ODT 75 mg Tablet,Disintegrating 75 mg PRN PRN (Reason: Headache) Referrals: ProviderDarrius [Primary Care Provider] - Stand Alone Forms: Patient Portal/API
--- NOTE | 2022-12-30 20:28 | DI.US.S_ITS ---
PROCEDURE: US OB >= 14 WEEKS FETUS INDICATIONS: pelvic pain, cramping OUTSIDE/PRIOR DATING DATA: Last menstrual period (LMP): 08/30/2022. LMP-based estimated date of delivery (NITHYA): 06/06/2023. First dating scan (date and location): 12/30/2022. Estimated date of delivery (NITHYA) from first dating scan: Is 06/03/2023. TECHNIQUE: Real-time scanning was performed of the fetus, with image documentation and biometric measurements. Endovaginal scanning: Not performed COMPARISON: None. FINDINGS: General: A single living intrauterine gestation is present. Presentation: Vertex. Placenta: Placental position is anterior , without previa. Amniotic fluid index: 11.0 cm, normal range is 5-24 cm. Single deepest vertical pocket is 4.3 cm. heart rate: 163 beats per minute. Maternal cervical canal: 3.1 cm long. Normal lower limit is 2.5 cm. biometrics: Biparietal diameter: 4.1 cm 18 weeks 3 days Head circumference: 14.9 cm 18 weeks 0 days Abdominal circumference: 11.8 cm 17 weeks 4 days Femur length: 2.5 cm 17 weeks 3 days estimated gestational age: 17 weeks 3 days Composite gestational age from present scan: 17 weeks 6 days Estimated weight and percentile: 200 g, 53rd percentile Maternal ovaries not visualized likely due to bowel gas. IMPRESSION: 1. Single living intrauterine in vertex presentation. 2. Normal amniotic fluid index. Maternal cervix is long and closed. No definite evidence of placental abruption identified. We strive to produce accurate, complete, and clear reports of imaging services. To assist us in improving patient care, this report was composed using standard report templates and voice recognition software. Therefore, it may contain abnormal punctuation, insertions and/or omissions. Occasional wrong-word or sound-alike substitutions may occur. Though we review the report and make efforts to correct it, we do recommend that the report be read carefully in proper context to recognize any text inaccuracies. Dictated by: Franko Kumar M.D. on 12/30/2022 at 21:35 Approved by: Franko Kumar M.D. on 12/30/2022 at 21:41
[2022-12-30 21:02] VITALS: BP 117/73; PULSE 68; RESP 18; TEMP 36.5; O2SAT 98
== END 2022-12-30 21:05 | disposition home or self-care (01) ==
PROVIDERS: Emergency Provider Emergency Medicine
DX: O26.892 Other specified pregnancy related conditions, second trimester (principal); R10.2 Pelvic and perineal pain; Z3A.17 17 weeks gestation of pregnancy
CPT/HCPCS: 76811; 81003; 99282; 99283